=== PATIENT | male | born 1990 | race Caucasian/White ===

== ENCOUNTER 2019-10-27 21:07 | Emergency (ER) | payer SELFPAY ==
[~2019-10-27] VITALS: Ht 165.1 cm; Wt 59.0 kg
[2019-10-27] MEDS ORDERED: BACITRACIN ZINC 15 GM TOPICAL OINTMENT TP ONE (22:00)
[2019-10-27] MEDS ORDERED: ACETAMINOPHEN 500 MG TABLET PO ONE (22:00)
[2019-10-27] MEDS ORDERED: DIPH-TET-PERTUS Vaccine 0.5 ML VIAL (ADACEL) I.M. ONE (22:00)
[2019-10-27] MEDS ORDERED: cefTRIAXone 1 GM in LIDOCAINE 1%, 20 ML MDV 2.1 ML IM ONE (22:00)
[2019-10-27 22:20] VITALS: BP_SYST 126
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
--- NOTE | 2019-10-27 22:22 | NUR ---
Pt placed in ER [facility] chair for evaluation
--- NOTE | 2019-10-27 22:30 | NUR ---
ER at chairside examining patient.
[2019-10-27] MEDS ORDERED: BACITRACIN 1 GM OINT TP ONE (22:53)
[2019-10-27 23:00] VITALS: BP_SYST 122
--- NOTE | 2019-10-27 23:00 | NUR ---
Patient given written and verbal discharge instructions and verbalizes understanding. ER MD discussed with patient the results and treatment provided. Patient in stable condition. ID arm band removed. no iv Rx of motrin given. Patient educated on pain management and to follow up with PMD. Pain Scale 0/10. Opportunity for questions provided and answered. Medication side effect fact sheet provided.
== END 2019-10-27 23:00 | disposition home or self-care (01) ==
LOC: SED 21:07
DX: T24.201A Burn of second degree of unspecified site of right lower limb, except ankle and foot, initial encounter (principal); X08.8XXA Exposure to other specified smoke, fire and flames, initial encounter; Y93.89 Activity, other specified; Y92.89 Other specified places as the place of occurrence of the external cause; Y99.8 Other external cause status
CPT/HCPCS: 16020; 90471; 90715; 96372; 99284; J0696; J2001

== ENCOUNTER 2020-04-25 01:29 | Emergency (ER) | payer OTHER, MEDICAID ==
[~2020-04-25] VITALS: Ht 165.1 cm; Wt 68.0 kg
[2020-04-25 01:40] VITALS: BP_SYST 131
--- NOTE | 2020-04-25 01:40 | NUR ---
PT TO REMAIN IN TENT FOR EVALUATION
--- NOTE | 2020-04-25 01:47 | NUR ---
DR. MARMOLEJO TO TENT TO EVALUATE PT STATUS
[2020-04-25] MEDS ORDERED: IBUPROFEN 600 MG TABLET PO ONE (02:00)
--- NOTE | 2020-04-25 02:10 | NUR ---
PT TO XRAY
--- NOTE | 2020-04-25 02:19 | NUR ---
PT BACK FROM XRAY
[2020-04-25 02:30] VITALS: BP_SYST 131
--- NOTE | 2020-04-25 02:30 | NUR ---
Patient given written and verbal discharge instructions and verbalizes understanding. DR. FRANCIE BLANCHARD MD discussed with patient the results and treatment provided. Patient in stable condition. ID arm band removed. Rx of NAPROSYN given. Patient educated on pain management and to follow up with PMD. Pain Scale 0/10. Opportunity for questions provided and answered. Medication side effect fact sheet provided.
== END 2020-04-25 02:30 | disposition home or self-care (01) ==
LOC: SED 01:29
DX: S33.9XXA Sprain of unspecified parts of lumbar spine and pelvis, initial encounter (principal); V49.9XXA Car occupant (driver) (passenger) injured in unspecified traffic accident, initial encounter; Y93.89 Activity, other specified; Y92.89 Other specified places as the place of occurrence of the external cause; Y99.8 Other external cause status
CPT/HCPCS: 72100-TC; 99283

== ENCOUNTER 2021-06-23 08:25 | Emergency (ER) | payer MEDICAID ==
[~2021-06-23] VITALS: Ht 165.1 cm; Wt 68.0 kg
[2021-06-23 08:38] VITALS: BP_SYST 145
[2021-06-23] MEDS ORDERED: MECLIZINE HCL 25 MG TABLET (ANITVERT) PO ONE (08:45)
[2021-06-23] MEDS ORDERED: NACL 0.9% 1,000 ML IV ONE (08:45)
[2021-06-23] MEDS ORDERED: ONDANSETRON HCL 4 MG/2 ML VIAL IVP ONE (08:45)
[2021-06-23 08:54] LABS: BASOPHILS % (AUTO) 0.3 % (0.0-2.0); EOSINOPHILS # (AUTO) 0.1 K/uL (0.0-0.4); EOSINOPHILS % (AUTO) 1.1 % (0.0-4.0); HEMATOCRIT 46.2 % (36-54); HEMOGLOBIN 15.7 g/dL (14.0-18.0); LYMPHOCYTES # (AUTO) 1.5 K/uL (1.0-5.5); LYMPHOCYTES % (AUTO) 15.8 % (20.5-51.5); MEAN CORPUSCULAR HEMOGLOBIN 31 pg (27-31); MEAN CORPUSCULAR HGB CONC 34 % (32-36); MEAN CORPUSCULAR VOLUME 90 fL (79.0-98.0); MONOCYTES # (AUTO) 0.6 K/uL (0.0-1.0); MONOCYTES % (AUTO) 6.2 % (1.7-9.3); NEUTROPHILS # (AUTO) 7.4 K/uL (1.8-7.7); NEUTROPHILS % (AUTO) 76.6 % (40.0-70.0); PLATELET COUNT (AUTO) 244 K/uL (130-430); RED BLOOD CELL COUNT(AUTO) 5.13 MIL/uL (4.2-6.2); WHITE BLOOD COUNT (AUTO) 9.7 K/uL (4.8-10.8)
[2021-06-23] MEDS ORDERED: METOCLOPRAMIDE HCL 10 MG/2 ML VIAL IVP ONE (09:30)
[2021-06-23 09:35] LABS: CALCIUM 7.7 mg/dL (8.4-11.0); CREATININE 0.73 mg/dL (0.55-1.30); POTASSIUM 3.7 mmol/L (3.5-5.1)
[2021-06-23 09:40] LABS: TOTAL BILIRUBIN 0.3 mg/dL (0.0-1.0)
[2021-06-23] MEDS ORDERED: METO-290 PO (10:00)
[2021-06-23] MEDS ORDERED: MECL-225 PO (10:00)
[2021-06-23 10:03] VITALS: BP_SYST 111
== END 2021-06-23 10:03 | disposition home or self-care (01) ==
LOC: SED 08:25
DX: R42 Dizziness and giddiness (principal); R11.2 Nausea with vomiting, unspecified
CPT/HCPCS: 36415; 80053; 83690; 85025; 96361; 96374; 96375; 99284; J2405; J2765; J7030; J8597